=== PATIENT | female | born 1950 | race Caucasian/White ===

== ENCOUNTER 2019-01-25 10:07 | Day surgery (SDC) | payer OTHER, MEDICARE ==
[2019-01-25] MEDS ORDERED: LR 1,000 ML IV ONE (10:25)
--- NOTE | 2019-01-25 11:48 | PDANEPAE ---
ANE History of Present Illness Colonoscopy ANE Past Medical History - Cardiovascular History Hx Hypertension: No Hx Arrhythmias: No Hx Chest Pain: No Hx Coronary Artery / Peripheral Vascular Disease: No Hx CHF / Valvular Disease: No Hx Palpitations: No - Pulmonary History Hx COPD: No Hx Asthma/Reactive Airway Disease: No Hx Recent Upper Respiratory Infection: No Hx Oxygen in Use at Home: No Hx Sleep Apnea: Yes Sleep Apnea Screening Result - Last Documented: Positive Pulmonary History Comment: shelli positive uses cpap- instructed pt to bring DOP. allergy related wheezing at times - Neurologic History Hx Cerebrovascular Accident: No Hx Seizures: No Hx Dementia: No - Endocrine History Hx Diabetes: No Hypothyroid: Yes Hyperthyroid: No Obesity: severe - Renal History Hx Renal Disorders: No - Liver History Hx Hepatic Disorders: No - Neurological & Psychiatric Hx Hx Neurological and Psychiatric Disorders: No - Cancer History Hx Cancer: No - Congenital Disorder History Hx Congenital Disorders: No - GI History GERD: mild Hx Gastrointestinal Disorders: Yes Gastrointestinal History Comment: gastric bypass surgery. occ constipation - Other Health History Other Health History: rosacea- no issues currently. adult acne. wears glasses - Chronic Pain History Chronic Pain: No - Surgical History Prior Surgeries: back surgery [id number]. gastric bypass. bilateral carpal tunnel surgeries. mayra in . left knee scope. tonsillectomy. foot surgery for plantar fascitis 2002 or 2003 ANE Review of Systems Review of Systems: - Exercise capacity METS (RN): 4 METS - Systems EENMT: Reports: no symptoms Cardiac: Reports: no symptoms Respiratory: Reports: no symptoms, other (SHELLI) Gastrointestinal: Reports: no symptoms Hematologic/Lymphatic: Reports: no symptoms ANE Patient History - Allergies Allergies/Adverse Reactions: codeine Allergy (Verified 01/10/19 12:29) nausea - Home Medications Home Medications: FLUoxetine HCL 06/05/18 [Last Taken 01/25/19] Lasix 06/05/18 [Last Taken 3 Days Ago ~01/22/19] Levothyroxine 06/05/18 [Last Taken 01/25/19] Nortriptyline HCl 06/05/18 [Last Taken Unknown] Potassium Cl 06/05/18 [Last Taken 3 Days Ago ~01/22/19] - NPO status NPO Status: no food or drink >8 hours NPO Since - Liquids (Date): 01/25/19 NPO Since - Liquids (Time): 06:30 NPO Since - Solids (Date): 01/24/19 NPO Since - Solids (Time): 10:30 - Anes Hx Anes Hx: no prior problems - Smoking Hx Smoking Status: Current some day smoker Marijuana use: Yes - Family Anes Hx Family Anes Hx: none Family Hx Anesthesia Complications: none ANE Labs/Vital Signs - Vital Signs Blood Pressure: 125/76 Heart Rate: 75 Respiratory Rate: 20 O2 Sat (%): 95 Height: 157.48 cm Weight: 117.934 kg ANE Physical Exam - Airway Neck exam: decreased ROM Mallampati Score: Class 2 Mouth exam: normal dental/mouth exam - Pulmonary Pulmonary: no respiratory distress, no rales or rhonchi - Cardiovascular Cardiovascular: regular rate and rhythym, no murmur, rub, or gallop - ASA Status ASA Status: III ANE Anesthesia Plan Anesthesia Plan: GA with mask Total IV Anesthesia: Yes
[2019-01-25] MEDS ORDERED: CITRIC ACID/SODIUM CITRATE 30 ML UDCUP PO ONE (11:55)
--- NOTE | 2019-01-25 12:15 | PDGENHP ---
History & Physical Chief Complaint: change in stools History of Present Illness: h/o colitis doing well now. screenng exam Relevant Physical Exam: cv [id number] nl. chest CTA. abd + bs Cardiorespiratory Assessment: [id number]
[2019-01-25] MEDS ORDERED: PROPOFOL/EMULSION 500 MG/50 ML BOTTLE IV ONE (12:19)
--- NOTE | 2019-01-25 12:49 | GIREPORT ---
[facility] - Endoscopy Department Patient Name: Didi Mckeon Procedure Date: 01/25/2019 12:05 PM Patient Type: Outpatient Attending / ER Physician: Kaycee Mariscal MD Procedure: Colonoscopy Indications: High risk colon cancer surveillance: Inflammatory bowel disease Providers: Kaycee Mariscal MD Medicines: Monitored Anesthesia Care Complications: No immediate complications. Description of Procedure: After obtaining informed consent, the scope was passed under direct vis ion. Throughout the procedure, the patient's blood pressure, pulse, and oxyg en saturations were monitored continuously. The Colonoscope with irrigatio n channel was introduced through the anus with the intention of advancing to the ileum. The scope was advanced to the hepatic flexure before the procedure was aborted. Medications were given. The colonoscopy was perf ormed with difficulty due to poor bowel prep, a redundant colon and significa nt looping. Successful completion of the procedure was aided by withdrawin g and reinserting the scope, applying abdominal pressure and receiving assist ance from additional staff. Patient then developed decrease O2 saturation an d discussion with anesthesiologist decision was made to stop procedure. T he patient tolerated the procedure. The quality of the bowel preparation w as poor. Findings: The perianal and digital rectal examinations were normal. Many diverticula were found in the sigmoid colon. An area of moderately congested, erythematous and granular mucosa was f ound in the descending colon. Biopsies were taken with a cold forceps for histology. Estimated blood loss was minimal. Estimated Blood Loss: Estimated blood loss was minimal. Post Op Diagnosis: - Preparation of the colon was poor. - Diverticulosis in the sigmoid colon. - Congested, erythematous and granular mucosa in the descending colon. Biopsied. Recommendation: - Await pathology results. - Patient has a contact number available for emergencies. The signs and symptoms of potential delayed complications were discussed with the pat ient. Return to normal activities tomorrow. Written discharge instructions we re provided to the patient. - High fiber diet. - Continue present medications. - Return to physician assistant press operator, at that time can discuss alternative c olon cancer screening methods. - Discharge patient to home. - Thank you for allowing me to participate in the care of your patient. Attending Participation: I personally performed the entire procedure. Kaycee Mariscal MD Kaycee Mariscal MD 01/25/2019 12:49:23 PM This report has been signed electronicallyKaycee Mariscal MD Number of Addenda: 0 Note Initiated On: 01/25/2019 12:05 PM Total Procedure Duration Time 0 hours 18 minutes 12 seconds [email or web address]
[2019-01-25] MEDS ORDERED: ONDANSETRON 4 MG/2 ML VIAL IVP PRN (12:57)
[2019-01-25] MEDS ORDERED: ALBUTEROL 3 ML DEYVIAL IH PRN (12:57)
[2019-01-25] MEDS ORDERED: ACETAMINOPHEN 500 MG TAB PO PRN (12:57)
[2019-01-25] MEDS ORDERED: NALOXONE HCL 0.4 MG/ML INJ IVP PRN ×2 (12:57)
[2019-01-25] MEDS ORDERED: fentaNYL 100 MCG/2 ML INJ IVP PRN (12:57)
--- NOTE | 2019-01-25 12:58 | POSTANESTH ---
Post Anesthetic Evaluation Cardiovascular Status: Normal, Stable Respiratory Status: Normal, Stable Level of Consciousness/Mental Status: Can Participate in Eval Pain Control: Adequate, Prn Tx Ordered Nausea/Vomiting Control: Adequate, Prn Tx Ordered Complications Possibly Related to Anesthesia: None Noted
[2019-01-25 13:49] VITALS: BP 127/81
== END 2019-01-25 13:49 | disposition home or self-care (01) ==
LOC: FSGY 10:07
PROVIDERS: ATTEND Internal Medicine Gastroenterology
DX: Z12.11 Encounter for screening for malignant neoplasm of colon (principal); K57.30 Diverticulosis of large intestine without perforation or abscess without bleeding; K52.81 Eosinophilic gastritis or gastroenteritis; K59.8 Other specified functional intestinal disorders; G47.33 Obstructive sleep apnea (adult) (pediatric); E66.09 Other obesity due to excess calories; F17.210 Nicotine dependence, cigarettes, uncomplicated
CPT/HCPCS: J2704